=== PATIENT | male | born 1980 | race Two or more races ===

== ENCOUNTER 2016-12-08 14:56 | Emergency (ER) | payer MEDICAID ==
[~2016-12-08] VITALS: Ht 172.7 cm; Wt 79.4 kg
[2016-12-08 15:30] LABS: BASOPHILS % (AUTO) 0.6 % (0.0-2.0); DIFF TOTAL % 100 %; EOSINOPHILS # (AUTO) 0.2 /CMM (0.0-0.7); HEMATOCRIT 48 % (39-51); HEMOGLOBIN 16.1 g/dL (13.5-17.5); LYMPHOCYTES # (AUTO) 2.1 /CMM (0.8-4.8); LYMPHOCYTES % (AUTO) 26.6 % (20.0-44.0); MEAN CORPUSCULAR HEMOGLOBIN 30 PG (26.0-33.0); MEAN CORPUSCULAR HGB CONC 34 g/dl (31.0-36.0); MEAN CORPUSCULAR VOLUME 90 fL (80-96); MONOCYTES # (AUTO) 0.6 /CMM (0.1-1.30); MONOCYTES % (AUTO) 7.1 % (2.0-12.0); NEUTROPHILS % (AUTO) 63.7 % (43.0-81.0); PLATELET COUNT (AUTO) 278 /CMM (150-450); WHITE BLOOD COUNT (AUTO) 7.9 K/uL (4.3-11.0)
[2016-12-08 15:40] LABS: CALCIUM, SERUM 9.5 mg/dL (8.5-10.1); CREATININE 0.9 mg/dL (0.6-1.3); POTASSIUM 3.7 mmol/L (3.5-5.1)
[2016-12-08 15:46] LABS: ALBUMIN 4.8 g/dL (3.4-5.0); BILIRUBIN,DIRECT 0.3 mg/dL (0.0-0.2); BILIRUBIN,TOTAL 1.8 mg/dL (0.2-1.0); INDIRECT BILIRUBIN 1.5 mg/dL (0.0-1.1); TOTAL PROTEIN, SERUM 8.1 g/dL (6.4-8.2)
[2016-12-08] MEDS ORDERED: MECLIZINE HCL 25 MG TABLET ONE (15:55)
[2016-12-08] MEDS ORDERED: MECLIZINE HCL 12.5 MG TABLET PO ONE (16:00)
[2016-12-08 16:01] LABS: INR 0.98 (0.87-1.13); PROTHROMBIN TIME 10.3 SECS (9.5-12.7)
[2016-12-08] MEDS ORDERED: hydrALAZINE HCL IV 20 MG VIAL IV ONE (17:30)
[2016-12-08] MEDS ORDERED: hydrALAZINE HCL IV 20 MG VIAL ONE (17:35)
[2016-12-08 18:07] VITALS: BP 158/99
[2016-12-08 20:04] LABS: CANNABINOID, URINE NEGATIVE (NEGATIVE); PHENCYCLIDINE SCREEN,URINE NEGATIVE (NEGATIVE)
== END 2016-12-08 18:07 | disposition left against medical advice (07) ==
LOC: ER 14:58
DX: R42 Dizziness and giddiness (principal); R00.1 Bradycardia, unspecified; D18.03 Hemangioma of intra-abdominal structures; R79.89 Other specified abnormal findings of blood chemistry; R51 Headache; R79.1 Abnormal coagulation profile; Z87.891 Personal history of nicotine dependence
CPT/HCPCS: 36415; 70450; 76705; 80048; 80076; 80305; 84443; 84484; 85025; 85730; 93005; 96374; 99285; A4606; J0360; J8597; Z7610

== ENCOUNTER 2018-02-09 15:59 | Emergency (ER) | payer MEDICAID, OTHER ==
[~2018-02-09] VITALS: Ht 172.7 cm; Wt 90.7 kg
[2018-02-09 15:59] VITALS: BP 165/105
[2018-02-09] MEDS ORDERED: FLUORESCEIN SODIUM OPHTH 1 EA STRIP ONE (16:29)
[2018-02-09] MEDS ORDERED: TETRACAINE HCL/PF 0.5% UD 2 ML BOTTLE ONE (16:29)
[2018-02-09] MEDS ORDERED: TETRACAINE HCL/PF 0.5% UD 2 ML BOTTLE LEFTEYE ONE (16:30)
[2018-02-09] MEDS ORDERED: METOCLOPRAMIDE HCL 10 MG TABLET PO ONE (17:00)
[2018-02-09] MEDS ORDERED: KETOROLAC TROMETHAMINE INJ 60 MG/2 ML VIAL IM ONE (17:00)
[2018-02-09] MEDS ORDERED: KETOROLAC TROMETHAMINE INJ 30 MG/ML VIAL ONE (17:02)
[2018-02-09] MEDS ORDERED: METOCLOPRAMIDE HCL 10 MG TABLET ONE (17:02)
== END 2018-02-09 17:43 | disposition home or self-care (01) ==
LOC: ER 16:00
DX: G43.809 Other migraine, not intractable, without status migrainosus (principal); R11.0 Nausea; F17.200 Nicotine dependence, unspecified, uncomplicated
CPT/HCPCS: 96372; 99283; A4606; J1885; J8597; Z7610

== ENCOUNTER 2022-12-02 18:10 | Emergency (ER) | payer SELFPAY ==
[~2022-12-02] VITALS: Ht 172.7 cm; Wt 84.4 kg
[2022-12-02 18:10] VITALS: BP 154/99
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
[2022-12-02] MEDS ORDERED: HYDROCODONE/APAP 5/325MG TABLET ONE (18:27)
[2022-12-02] MEDS ORDERED: KETOROLAC TROMETHAMINE INJ 30 MG/ML VIAL ONE (18:28)
[2022-12-02] MEDS ORDERED: HYDROCODONE/APAP 5/325MG TABLET PO ONE (18:30)
[2022-12-02] MEDS ORDERED: KETOROLAC TROMETHAMINE INJ 30 MG/ML VIAL IM ONE (18:30)
[2022-12-02] MEDS ORDERED: KETO10TA2 PO (19:24)
[2022-12-02] MEDS ORDERED: HYDR-4209 PO ×2 (19:24)
--- NOTE | 2022-12-02 19:33 | NUR ---
EMT AT PT'S BEDSIDE TO APPLY SPLINT TO LFA
--- NOTE | 2022-12-02 20:01 | NUR ---
Patient discharged to home in stable condition. Written and verbal after care instructions given. Patient verbalizes understanding of instruction. pt ambulatory with a steady gait
== END 2022-12-02 20:02 | disposition home or self-care (01) ==
LOC: ER 18:12
DX: S52.512A Displaced fracture of left radial styloid process, initial encounter for closed fracture (principal); S62.317A Displaced fracture of base of fifth metacarpal bone, left hand, initial encounter for closed fracture; S50.811A Abrasion of right forearm, initial encounter; V29.99XA Rider (driver) (passenger) of other motorcycle injured in unspecified traffic accident, initial encounter; Y93.55 Activity, bike riding; Y92.89 Other specified places as the place of occurrence of the external cause; Y99.8 Other external cause status
CPT/HCPCS: 99283; 29125; 96372; 73110; J1885